=== PATIENT | female | born 1970 | race Caucasian/White ===

== ENCOUNTER 2020-05-16 06:54 | Outpatient (NON) | payer BC, SELFPAY ==
[2020-05-16 11:06] LABS: Influenza Control Positive
[2020-05-17 06:47] LABS: SARS-CoV-2 RNA PCR Positive
== END 2020-05-16 06:55 ==
LOC: ANHCOVIDDT 07:07
PROVIDERS: PCP Family Medicine; Visit Provider Family Medicine
DX: U07.1 COVID-19 (principal)
CPT/HCPCS: 87635; 87804; C9803; U0003

== ENCOUNTER → 2022-01-08 11:13 | Outpatient (CLI) | payer BC, SELFPAY ==
--- NOTE | ~2022-01-08 | XR_ITS ---
XR knee LT min 4V DATE: 01/08/2022 11:56 INDICATION: Left knee pain TECHNIQUE: Inland and standing AP, PA and lateral views COMPARISON: None FINDINGS: There is tricompartment osteoarthritis including periarticular spurring. Medial lateral com partment joint spaces are relatively preserved. No fracture or dislocation or joint effusion is detected. No periosteal reaction or bone destruction, radiopaque intra-articular loose body or chondrocalcinosis. IMPRESSION: Mild tricompartment osteoarthritis Reviewed, dictated and finalized at location A.
== END ==
PROVIDERS: PCP Physician Assistant; Visit Provider Physician Assistant
DX: M17.12 Unilateral primary osteoarthritis, left knee (principal)
CPT/HCPCS: 73564

== ENCOUNTER 2024-08-24 01:02 | Day surgery (SDC) | payer BC, SELFPAY ==
[2024-08-20 08:02] VITALS: BMI 36.3
[2024-08-24 12:21] VITALS: BP 127/88; PULSE 69; RESP 18; TEMP 36.1; O2SAT 100
[2024-08-24 12:29] LABS: BEDSIDEPREGUCG Negative (Negative)
[2024-08-24] MEDS: LACTATED RINGERS 1,000 ML 150 ML IV CONT (12:37)
--- NOTE | 2024-08-24 13:10 | PM.IMHP ---
H&P: HPI History of Present Illness Date/Time: 08/24/24 13:10 Chief Complaint: Screening colonoscopy Narrative: This is the patient's first colonoscopy. There are no GI symptoms and there is no family history of colorectal cancer. Review of Systems Review of Systems: All systems reviewed & are unremarkable except as noted in HPI and below PMFSH Past Medical History Medical History (Updated 08/24/24 @ 13:10 by Vamshi Rhodes MD) Depression Anxiety Gastric ulcer Social History Social History Smoking status: Never smoker Alcohol intake: current Alcohol use details: couple times a month Substance use: current Substance use type: marijuana Other substance usage details: gummies, smoking Living arrangements: with family Spiritual care concerns: No Meds Home Medications and Allergies Home Medications ?Medication ?Instructions ?Recorded ?Confirmed ?Type paroxetine HCl 10 mg tablet 10 mg PO .qday 08/20/24 08/24/24 History Allergies Allergy/AdvReac Type Severity Reaction Status Date / Time Sulfa (Sulfonamide Allergy Unknown Nausea Verified 08/24/24 12:19 Antibiotics) SULFAMETHOXAZOLE (Generic Allergy Y Uncoded 08/24/24 12:19 Allergy) Vital Signs Vital Signs - 24 hr 08/24/24 12:21 Temperature 97 F L Pulse Rate 69 Respiratory Rate 18 Blood Pressure 127/88 Pulse Oximetry 100 Oxygen Delivery Room Air Exam Const: General: cooperative and healthy appearing Resp: Effort & Inspection: normal respiratory effort and able to speak in complete sentences Auscultation: clear to auscultation bilaterally Cardio: Rate: regular rate Rhythm: regular rhythm GI: Inspection: normal to inspection GI Palp: No No hepatosplenomegaly present Auscultation: normal bowel sounds Rectal Exam: deferred Skin: General skin exam: normal color Psych: Appearance: grossly normal Mental Status: mental status grossly normal Assessment and Plan Assessment and plan (1) Encounter for screening colonoscopy: Code(s): Z12.11 - Encounter for screening for malignant neoplasm of colon Status: Acute Assessment and Plan: The patient is deemed a good candidate for the procedure. Consent signed. Will proceed.
[2024-08-24 13:33] VITALS: BP 112/69; PULSE 80; RESP 22; O2SAT 100
[2024-08-24 13:43] VITALS: BP 129/87; PULSE 66; RESP 24; O2SAT 100
[2024-08-24 13:53] VITALS: BP 133/81; PULSE 80; RESP 21; O2SAT 100
== END 2024-08-24 13:57 | disposition home or self-care (01) ==
PROVIDERS: Anesthesiology; PCP Physician Assistant; Referring Provider Nurse Practitioner Women's Health; Visit Provider Internal Medicine Gastroenterology
PROC: 0DJD8ZZ Inspection of Lower Intestinal Tract, Via Natural or Artificial Opening Endoscopic (ICD-10-PCS; CPT 45378; principal; 2024-08-24 13:00)
DX: Z12.11 Encounter for screening for malignant neoplasm of colon (principal); D12.8 Benign neoplasm of rectum; K64.8 Other hemorrhoids; F41.8 Other specified anxiety disorders
CPT/HCPCS: 45385; 88305; J2704; J7120

== ENCOUNTER 2025-05-07 09:19 | Outpatient (CLI) | payer BC, SELFPAY ==
--- NOTE | ~2025-05-07 | XR_ITS ---
EXAMINATION: XR knee RT 3V, 05/07/2025 9:42 CUSTOMER SUPPORT ADVISOR HISTORY: Pain in right knee x 2 months, swelling, no inj, no surg COMPARISON: No comparisons available. Findings: No acute fracture or malalignment. Moderate degenerative changes of the patellofemoral joint Soft tissues unremarkable. Impression: No acute fracture or malalignment. Reviewed, dictated and finalized at location P. OMER SUPPORT ADVISOR Impression: No acute fracture or malalignment.
--- NOTE | ~2025-05-07 | XR_ITS ---
EXAMINATION: XR knee LT 3V, 05/07/2025 9:42 RESTAURANT COOK HISTORY: M25.562 - Pain in left knee COMPARISON: No comparisons available. Findings: No acute fracture or malalignment. Moderate to severe degenerative changes of the patellofemoral joint Soft tissues unremarkable. Impression: No acute fracture or malalignment. Reviewed, dictated and finalized at location P. AURANT COOK Impression: No acute fracture or malalignment.
== END 2025-05-07 09:20 | disposition home or self-care (01) ==
PROVIDERS: PCP Student in an Organized Health Care Education/Training Program; Visit Provider Student in an Organized Health Care Education/Training Program
DX: M25.561 Pain in right knee (principal); M25.562 Pain in left knee
CPT/HCPCS: 73562

== ENCOUNTER 2025-05-07 09:58 | Outpatient (CLI) | payer BC, SELFPAY | END 2025-05-07 09:59 | disposition home or self-care (01) | LOC: ANHGOSHLAB 09:58 | PROVIDERS: PCP Student in an Organized Health Care Education/Training Program; Visit Provider Student in an Organized Health Care Education/Training Program | DX: E66.9 Obesity, unspecified (principal); R03.0 Elevated blood-pressure reading, without diagnosis of hypertension; R53.83 Other fatigue; E55.9 Vitamin D deficiency, unspecified; Z13.0 Encounter for screening for diseases of the blood and blood-forming organs and certain disorders involving the immune mechanism | CPT/HCPCS: 36415 ==